=== PATIENT | female | born 1965 | race Caucasian/White ===

== ENCOUNTER 2021-01-08 11:34 | Emergency (ER) | payer OTHER ==
--- NOTE | 2021-01-08 12:15 | EDM.PDOC ---
ED HPI GENERAL MEDICAL PROBLEM - General Chief Complaint: Upper Extremity Injury/Pain Stated Complaint: FELL, INJURED RIGHT ARM Time Seen by Provider: 01/08/21 12:11 Source of Information: Reports: Patient History Limitations: Reports: No Limitations - History of Present Illness INITIAL COMMENTS - FREE TEXT/NARRATIVE: This 55 yo female patient reports to the ED with right forearm pain due to a ground level fall. The patient reports she was attempting to get the dog out from under the deck when she tripped on the leash. The patient reports increased pain to her forearm. The patient reports she did have carpal tunnel surgery within the past year to the right wrist. Onset: Today Duration: Minutes: Quality: Reports: Ache Severity: Moderate Improves with: Reports: Rest Worsens with: Reports: Movement Context: Reports: Activity Associated Symptoms: Reports: No Other Symptoms Right Arm Pain Score (Numeric/FACES): 5 - Related Data Allergies Allergy/AdvReac Type Severity Reaction Status Date / Time alprazolam Allergy Arrhythmias Verified 01/08/21 12:05 amitriptyline Allergy Rash Verified 01/08/21 12:05 codeine Allergy Arrhythmias Verified 01/08/21 12:05 lorazepam Allergy Arrhythmias Verified 01/08/21 12:05 meperidine Allergy Arrhythmias Verified 01/08/21 12:05 naproxen [From Naprosyn] Allergy Arrhythmias Verified 01/08/21 12:05 oxycodone Allergy Arrhythmias Verified 01/08/21 12:05 Sulfa (Sulfonamide Allergy Arrhythmias Verified 01/08/21 12:05 Antibiotics) sumatriptan [From Imitrex] Allergy Arrhythmias Verified 01/08/21 12:05 wheat Allergy Cough Verified 01/08/21 12:05 Home Meds: Home Meds Cholecalciferol (Vitamin D3) [Vitamin D3] 1,000 unit PO DAILY 01/08/21 [History] Cyanocobalamin (Vitamin B-12) [Vitamin B-12] 1,000 mcg PO DAILY 01/08/21 [History] Escitalopram Oxalate [Lexapro] 10 mg PO DAILY 01/08/21 [History] L.acidoph,Paracasei, B.lactis [Probiotic] 1 each PO DAILY 01/08/21 [History] Losartan Potassium 25 mg PO DAILY 01/08/21 [History] Magnesium Oxide 400 mg PO DAILY 01/08/21 [History] Omeprazole Magnesium [Prilosec Otc] 20 mg PO DAILY 01/08/21 [History] Potassium Chloride [Klor-Con 10] 10 meq PO DAILY 01/08/21 [History] Propranolol HCl [Propranolol] 10 mg PO BID 01/08/21 [History] Tamoxifen Citrate 20 mg PO DAILY 01/08/21 [History] Review of Systems - Review of Systems Review Of Systems: Comprehensive ROS is negative, except as noted in HPI. ED EXAM, GENERAL - Physical Exam Exam: See Below Exam Limited By: No Limitations General Appearance: Alert, WD/WN, Mild Distress Eye Exam: Bilateral Eye: EOMI, Normal Inspection, PERRL Ears: Normal External Exam, Normal Canal, Hearing Grossly Normal, Normal TMs Nose: Normal Inspection, Normal Mucosa, No Blood Throat/Mouth: Normal Inspection, Normal Lips, Normal Teeth, Normal Gums, Normal Oropharynx, Normal Voice, No Airway Compromise Head: Atraumatic, Normocephalic Neck: Normal Inspection, Supple, Non-Tender, Full Range of Motion Respiratory/Chest: No Respiratory Distress, Lungs Clear, Normal Breath Sounds, No Accessory Muscle Use, Chest Non-Tender Cardiovascular: Normal Peripheral Pulses, Regular Rate, Rhythm, No Edema, No Gallop, No JVD, No Murmur, No Rub Peripheral Pulses: 4+: Radial (R) (Female) Exam: Deferred Rectal (Female) Exam: Deferred Extremities: Arm Pain (Right forearm pain due to fall. CMS intact during assessment. The patient does have pain with supination and pronation of hand. ) Neurological: Alert, Oriented, CN II-XII Intact, Normal Cognition, Normal Gait, Normal Reflexes, No Motor/Sensory Deficits Psychiatric: Normal Affect, Normal Mood Skin Exam: Warm, Dry, Intact, Normal Color, No Rash Lymphatic: No Adenopathy Course - Vital Signs Last Recorded V/S: Last Vital Signs Temp 97.4 F 01/08/21 11:59 Pulse 65 01/08/21 11:59 Resp 16 01/08/21 11:59 BP 164/92 H 01/08/21 11:59 Pulse Ox 100 01/08/21 11:59 - Orders/Labs/Meds Orders: Active Orders 24 hr Category Date Time Status Forearm 2V Rt [CR] Urgent Exams 01/08/21 12:11 Taken DME for Discharge [COMM] Urgent Oth 01/08/21 13:49 Ordered Departure - Departure Time of Disposition: 13:49 Disposition: Home, Self-Care 01 Condition: Fair Clinical Impression: Radial head fracture, closed Qualifiers: Encounter type: initial encounter Fracture alignment: nondisplaced Laterality: right Qualified Code(s): S52.124A - Nondisplaced fracture of head of right radius, initial encounter for closed fracture - Discharge Information *PRESCRIPTION DRUG MONITORING PROGRAM REVIEWED*: Not Applicable *COPY OF PRESCRIPTION DRUG MONITORING REPORT IN PATIENT LONNIE: Not Applicable Instructions: How To Use a Sling, [id number], Radial Head Fracture, [id number] Forms: ED Department Discharge Care Plan Goals: The patient was advised of the examination and x-ray results during the visit. The patient was placed in a right arm sling for immobilization and comfort. The patient was encouraged to rest and ice the area over the next week. The patient was given a CD of her x-rays and her x-rays were sent to [facility] over the PAC[facility] system. The patient was encouraged to follow-up with her primary care facility within the next week for continued evaluation and further management. The patient may take Tylenol or ibuprofen as directed for temporary symptom relief. If the patient has any additional symptoms or concerns, the patient should either return to the emergency department or visit her primary care facility. Sepsis Event Note (ED) - Evaluation Sepsis Screening Result: No Definite Risk - Focused Exam Vital Signs: Vital Signs Temp Pulse Resp BP Pulse Ox 01/08/21 11:59 97.4 F 65 16 164/92 H 100 - My Orders Last 24 Hours: My Active Orders 01/08/21 12:11 Forearm 2V Rt [CR] Urgent 01/08/21 13:49 DME for Discharge [COMM] Urgent - Assessment/Plan Last 24 Hours: My Active Orders 01/08/21 12:11 Forearm 2V Rt [CR] Urgent 01/08/21 13:49 DME for Discharge [COMM] Urgent
--- NOTE | 2021-01-08 14:14 | CR ---
PROCEDURE INFORMATION: Exam: XR Right Forearm Exam date and time: 01/08/2021 12:19 PM Age: 55 years old Clinical indication: Other: Right forearm pain due to ground level fall TECHNIQUE: Imaging protocol: XR Right forearm. Views: 2 views. Total images: 3 COMPARISON: No relevant prior studies available. FINDINGS: Bones/joints: Elbow joint effusion. Deformity of the radial head suggest slightly impacted radial head fracture. Soft tissues: Normal. IMPRESSION: Findings suggest slightly impacted radial head fracture with elbow joint effusion.
== END 2021-01-08 13:57 | disposition home or self-care (01) ==
LOC: DL.ED 11:34
DX: S52.124A Nondisplaced fracture of head of right radius, initial encounter for closed fracture (principal); Z79.899 Other long term (current) drug therapy; Z88.5 Allergy status to narcotic agent; Z91.018 Allergy to other foods; Z88.2 Allergy status to sulfonamides; Z88.8 Allergy status to other drugs, medicaments and biological substances; W18.39XA Other fall on same level, initial encounter
CPT/HCPCS: 73090-RT; 99283-25; 99284

== ENCOUNTER 2024-12-19 19:05 | Emergency (ER) | payer BC, OTHER ==
[2024-12-19] MEDS ORDERED: Sodium Chloride 0.9% 10 ML Syringe FLUSH PRN (19:18)
[2024-12-19 19:24] LABS: BASOPHILS PERCENT AUTO 0.6 % (0.0-1.0); EOSINOPHILS PERCENT AUTO 2.5 % (1.0-3.0); HEMATOCRIT 44.3 % (37.0-47.0); HEMOGLOBIN 14.9 g/dL (12.0-16.0); LYMPHOCYTES PERCENT AUTO 46.6 % (20.5-50.1); MEAN CORPUSCULAR HEMOGLOBIN 29.6 pg (27.0-34.0); MEAN CORPUSCULAR HGB CONC 33.6 g/dL (33.0-35.0); MEAN CORPUSCULAR VOLUME 88.1 fL (80-100); MONOCYTES PERCENT AUTO 7.9 % (2-8); NEUTROPHILS PERCENT AUTO 42.4 % (42.2-75.2); PLATELET COUNT,PLT 216 10^3/uL (150-450); RED BLOOD CELL COUNT 5.03 10^6/uL (4.2-5.4); WHITE BLOOD CELL COUNT,WBC 6.7 10^3/uL (5.0-10.0)
[2024-12-19] MEDS: Aspirin 81 MG Tab.Chew PO ONE (19:31)
[2024-12-19 19:42] LABS: A/G RATIO 1.1; ALANINE AMINOTRANSFERASE,ALT 29 U/L (14-59); ALBUMIN 4.1 g/dL (3.4-5.0); ALKALINE PHOSPHATASE 75 U/L (46-116); ANION GAP 12.7 mEq/L (7-13); ASPARTATE AMNIOTRANSFERASE,AST 24 U/L (15-37); BILIRUBIN TOTAL 0.6 mg/dL (0.2-1.0); BLOOD UREA NITROGEN,BUN 20 mg/dL (7-18); BUN/CREATININE RATIO 22.2 (No establ ref range); C-REACTIVE PROTEIN < 0.50 ng/dL (<=0.50); CALCIUM 9.4 mg/dL (8.5-10.1); CARBON DIOXIDE,CO2 27 mmol/L (21-32); CHLORIDE,CL 106 mmol/L (98-107); EST CRCL DRUG DOSING (CG) 61.45 mL/min; ESTIMATED GFR 73 mL/min (>=60); GLUCOSE RANDOM 108 mg/dL (70-99); MAGNESIUM 2.1 mg/dL (1.8-2.4); POTASSIUM,K 3.7 mmol/L (3.5-5.1); PROTEIN TOTAL,TP 7.7 g/dL (6.4-8.2); SODIUM,NA 142 mmol/L (136-145)
[2024-12-19 19:51] LABS: INR 0.9 (0.9-1.2); PROTHROMBIN TIME 9.3 SEC (9.0-12.0); PTT,PARTIAL THROMBOPLSTIN TIME 24.5 SEC (22.0-34.0)
[2024-12-19] MEDS: Take Home: Cyclobenzaprine 10 MG Tab, 4 Tab Pack PO ONE (20:17)
[2024-12-19] MEDS ORDERED: Aspirin 81 MG Tab.Chew ONE (22:16)
== END 2024-12-19 20:47 | disposition home or self-care (01) ==
LOC: DL.ED 19:05
DX: M79.18 Myalgia, other site (principal); I10 Essential (primary) hypertension; K21.9 Gastro-esophageal reflux disease without esophagitis; Z88.2 Allergy status to sulfonamides; Z91.018 Allergy to other foods; Z88.8 Allergy status to other drugs, medicaments and biological substances; Z79.899 Other long term (current) drug therapy; Z90.49 Acquired absence of other specified parts of digestive tract; Z90.710 Acquired absence of both cervix and uterus
CPT/HCPCS: 36415; 71045; 80053; 83735; 84484; 85025; 85610; 85730; 86140; 93005; 93010; 99284; 99285; A9270-GY